=== PATIENT | male | born 1995 | race Native Hawaiian/Other Pacific Islander ===

== ENCOUNTER 2018-10-07 22:05 | Emergency (ER) | payer SELFPAY ==
[~2018-10-07] VITALS: Ht 190.5 cm; Wt 145.1 kg
[2018-10-08 01:25] VITALS: BP 116/69
== END 2018-10-08 01:28 | disposition home or self-care (01) ==
LOC: ER 22:11
DX: S13.9XXA Sprain of joints and ligaments of unspecified parts of neck, initial encounter (principal); S83.91XA Sprain of unspecified site of right knee, initial encounter; M62.838 Other muscle spasm; W03.XXXA Other fall on same level due to collision with another person, initial encounter; Y93.63 Activity, rugby; Y99.8 Other external cause status; Y92.89 Other specified places as the place of occurrence of the external cause
CPT/HCPCS: 72125; 73560